=== PATIENT | female | born 1930 | race Caucasian/White ===

== ENCOUNTER → 2021-03-21 | Outpatient (CLI) | payer MEDICARE, OTHER ==
--- NOTE | 2021-03-21 17:04 | CARD ---
MR#: [id number] Date of Study: 03/21/2021 Ordering Physician: DAREK ROSALES, Referring Physician: DAREK ROSALES, Tech: Lida Duran [facility] APPROVED REPORT EXAM: Two-dimensional and M-mode echocardiogram with Doppler and color Doppler. Other Information Quality : GoodHR: 87bpm Rhythm : Pacemaker INDICATION Arrhythmia Complete Heart Block Surgery/Intervention Pacemaker: Date: 2011 RISK FACTORS Hypertension 2D DIMENSIONS IVSd0.9 (0.7-1.1cm)Aortic Root(2D)3.0 (2.0-3.7cm) LVDd3.8 (3.9-5.9cm)LVOT Diameter1.9 (1.8-2.4cm) PWd0.9 (0.7-1.1cm)LVDs2.3 (2.5-4.0cm) FS (%) 40.2 %SV43.7 ml Aortic Valve AoV Peak Fadi.114.3cm/sAoV VTI19.4cm AO Peak GR.5.2mmHgLVOT Peak Fadi.99.9cm/s LVOT VTI 17.86cmAO Mean GR.3mmHg CAMRYN (VMAX)2.58yk7BKY (VTI)2.74cm2 AI P 1/2 Izdl427ev Mitral Valve MV E Rykgjrpj06.1cm/sMV A Caiiskgv504.0cm/s MV E Mean Gr.3mmHgE/A Ratio0.6 TDI E/Lateral E'9.1E/Medial E'12.0 Pulmonary Valve PV Peak Ycuyacdq42.6cm/sPV Peak Grad.3mmHg Tricuspid Valve TR P. Dspyynjk498kk/sRAP UIMTKLCE6orSe TR Peak Gr.05jpSiYPDS90xrHv LEFT VENTRICLE The left ventricle is normal size. There is normal left ventricular wall thickness. The left ventricu lar systolic function is normal and the ejection fraction is within normal range. The Ejection Fracti on is 50-55%. There is normal LV segmental wall motion. Transmitral Doppler flow pattern is Grade I-a bnormal relaxation pattern. RIGHT VENTRICLE The right ventricle is normal size. There is normal right ventricular wall thickness. The right ventr icular systolic function is normal. ATRIA The left atrium size is normal. The right atrium size is normal. The interatrial septum is intact wit h no evidence for an atrial septal defect or patent foramen ovale as noted on 2-D or Doppler imaging. AORTIC VALVE The aortic valve is normal in structure and function. Doppler and Color Flow revealed trace aortic re gurgitation. There is no significant aortic valvular stenosis. Calculated aortic valve area is 1.27 c m2 with maximum pressure gradient of 8 mmHg and mean pressure gradient of 4 mmHg. MITRAL VALVE The mitral valve is normal in structure and function. There is no evidence of mitral valve prolapse. There is no mitral valve stenosis. Doppler and Color-flow revealed trace mitral regurgitation. TRICUSPID VALVE The tricuspid valve is normal in structure and function. Doppler and Color Flow revealed trace to mil d tricuspid regurgitation with an estimated PAP of 31 mmHg. There is no tricuspid valve stenosis. PULMONIC VALVE The pulmonic valve is not well visualized. Doppler and Color Flow revealed trace pulmonic valvular re gurgitation. GREAT VESSELS The aortic root is normal in size. The IVC is normal in size and collapses >50% with inspiration. PERICARDIAL EFFUSION There is no evidence of significant pericardial effusion. Critical Notification Critical Value: No <Conclusion> The left ventricle is normal size. The left ventricular systolic function is normal and the ejection fraction is within normal range. The Ejection Fraction is 50-55%. Doppler and Color Flow revealed trace aortic regurgitation. There is no significant aortic valvular stenosis. Doppler and Color-flow revealed trace mitral regurgitation. Doppler and Color Flow revealed trace to mild tricuspid regurgitation with an estimated PAP of 31 mmH g. Signed by : Luis Mckeon MD Electronically Approved : 03/21/2021 17:04:05
== END ==
LOC: ECHO 14:25
PROVIDERS: ATTEND Internal Medicine Cardiovascular Disease
DX: I07.1 Rheumatic tricuspid insufficiency (principal); I44.2 Atrioventricular block, complete; I49.9 Cardiac arrhythmia, unspecified
CPT/HCPCS: 93306

== ENCOUNTER 2021-04-22 14:20 | Observation (INO) | payer MEDICARE, OTHER ==
[~2021-04-22] VITALS: Ht 152.4 cm; Wt 62.7 kg
[2021-04-22 16:56] LABS: BASO # 0.1 x10^3/uL (0.0-0.2); BASO % 1 % (0-3); EOS # 4.2 x10^3/uL (0.0-0.7); EOS % 31 % (0-3); HEMATOCRIT 38.5 % (36.0-47.0); HEMOGLOBIN 13.1 g/dL (12.0-15.5); LYMPH # 2.1 x10^3/uL (1.0-4.8); LYMPH % 16 % (24-48); MEAN CORPUSCULAR HEMOGLOBIN 28 pg (25-35); MEAN CORPUSCULAR HGB CONC 34 g/dL (31-37); MEAN CORPUSCULAR VOLUME 82 fL (79-100); MONO # 0.8 x10^3/uL (0.0-1.1); MONO % 6 % (0-9); NEUT # 6.5 x10^3/uL (1.8-7.7); NEUT % 48 % (31-73); PLATELET COUNT 244 x10^3/uL (140-400); RED BLOOD COUNT 4.69 x10^6/uL (3.50-5.40); RED CELL DISTRIBUTION WIDTH 13.5 % (11.5-14.5); WHITE BLOOD COUNT 13.7 x10^3/uL (4.0-11.0)
[2021-04-22 17:13] LABS: ALBUMIN 3.5 g/dL (3.4-5.0); ALBUMIN/GLOBULIN RATIO 1.1 (1.0-1.7); C-REACTIVE PROTEIN 7.1 mg/L (0-3.3); CALCIUM 8.6 mg/dL (8.5-10.1); GFR 52.2; TOTAL BILIRUBIN 0.6 mg/dL (0.2-1.0); TOTAL PROTEIN 6.7 g/dL (6.4-8.2)
[2021-04-22 17:14] LABS: POTASSIUM 2.7 mmol/L (3.5-5.1)
--- NOTE | 2021-04-22 17:53 | PHYS DOC ---
Past Medical History Past Medical History: A-Fib, Arthritis, Glaucoma, High Cholesterol, Hypertension, Hypothyroid Past Surgical History: Hysterectomy Additional Past Surgical Histo: pacemaker Smoking Status: Never Smoker Alcohol Use: None General Adult EDM: Chief Complaint: SKIN PROBLEM HPI: HPI: Patient is a 89 year old female with history of atrial fibrillation, HTN, HLD, GERD, arthritis who presents with 8 days of a rash. Started on the forearms. Began to develop all over her body. States that is both painful and itchy. Has tried Benadryl and topical hydrocortisone without relief. No new lotions or medications. No new exposures. Nobody at her facility has similar symptoms. Lives in an assisted living facility currently. Has had some slight increase in her lower extremity swelling and has had a dose of Lasix increased since January. No other new medication changes. Denies fever/chills. No nausea/vomiting, diarrhea. No abdominal pain, chest pain, or other painful areas. Medication list includes: Levothyroxine Meclizine Melatonin Omeprazole Pravastatin Telmisartan Tramadol Aspercreme Pain medicine Amlodipine Celecoxib diclofenac gel Eliquis Furosemide Review of Systems: Review of Systems: Constitutional: Denies fever or chills. [] Eyes: Denies change in visual acuity. [] HENT: Denies nasal congestion or sore throat. [] Respiratory: Denies cough or shortness of breath. [] Cardiovascular: Denies chest pain. Reports lower extremity edema. GI: Denies abdominal pain, nausea, vomiting, bloody stools or diarrhea. [] : Denies dysuria. [] Musculoskeletal: Denies back pain or joint pain. [] Integument: Reports diffuse rash Neurologic: Denies headache, focal weakness or sensory changes. [] Endocrine: Denies polyuria or polydipsia. [] Lymphatic: Denies swollen glands. [] Psychiatric: Denies depression or anxiety. [] Heart Score: C/O Chest Pain: No Current Medications: Current Medications Medications (Trade) Dose Ordered Sig/Nilesh Start Time Stop Time Status Last Admin Dose Admin Potassium Chloride/Water 100 ml @ 50 mls/hr 1X ONCE 04/22/21 18:00 04/22/21 19:59 Potassium Chloride (Klor-Con) 40 meq 1X ONCE 04/22/21 18:00 04/22/21 18:01 Allergies: Allergies: Allergies Coded Allergies Type Severity Reaction Last Updated Verified acetaminophen Allergy Intermediate Unknown 04/22/21 Yes oxycodone Allergy Intermediate Unknown 04/22/21 Yes rivaroxaban Allergy Intermediate Unknown 04/22/21 Yes Physical Exam: PE: Constitutional: Well developed, well nourished, no acute distress, non-toxic appearance. [] HENT: Normocephalic, atraumatic. No mucosal lesions. Neck: Normal range of motion, no tenderness, supple, no stridor. [] Cardiovascular:Heart rate regular rhythm, no murmur [] Lungs & Thorax: Bilateral breath sounds clear to auscultation [] Abdomen: Bowel sounds normal, soft, no tenderness, no masses, no pulsatile masses. [] Skin: Diffuse maculopapular nonblanching rash. In some areas it seems to respect the closing lines such as around the bra, but does not respect sock lines, or underwear or clothing lines. Does not involve the palms, no involv ement of the soles of the feet Extremities: No tenderness, no cyanosis, no clubbing, ROM intact, no edema. [] Neurologic: Alert and oriented X 3, normal motor function, normal sensory function, no focal deficits noted. [] Psychologic: Affect normal, judgement normal, mood normal. [] Current Patient Data: Labs: Laboratory Tests Test 04/22/21 15:50 White Blood Count 13.7 x10^3/uL (4.0-11.0) H Red Blood Count 4.69 x10^6/uL (3.50-5.40) Hemoglobin 13.1 g/dL (12.0-15.5) Hematocrit 38.5 % (36.0-47.0) Mean Corpuscular Volume 82 fL (79-100) Mean Corpuscular Hemoglobin 28 pg (25-35) Mean Corpuscular Hemoglobin Concent 34 g/dL (31-37) Red Cell Distribution Width 13.5 % (11.5-14.5) Platelet Count 244 x10^3/uL (140-400) Neutrophils (%) (Auto) 48 % (31-73) Lymphocytes (%) (Auto) 16 % (24-48) L Monocytes (%) (Auto) 6 % (0-9) Eosinophils (%) (Auto) 31 % (0-3) H Basophils (%) (Auto) 1 % (0-3) Neutrophils # (Auto) 6.5 x10^3/uL (1.8-7.7) Lymphocytes # (Auto) 2.1 x10^3/uL (1.0-4.8) Monocytes # (Auto) 0.8 x10^3/uL (0.0-1.1) Eosinophils # (Auto) 4.2 x10^3/uL (0.0-0.7) H Basophils # (Auto) 0.1 x10^3/uL (0.0-0.2) Platelet Estimate Pending Sodium Level 141 mmol/L (136-145) Potassium Level 2.7 mmol/L (3.5-5.1) *L Chloride Level 101 mmol/L (98-107) Carbon Dioxide Level 29 mmol/L (21-32) Anion Gap 11 (6-14) Blood Urea Nitrogen 12 mg/dL (7-20) Creatinine 1.0 mg/dL (0.6-1.0) Estimated GFR (Cockcroft-Gault) 52.2 BUN/Creatinine Ratio 12 (6-20) Glucose Level 94 mg/dL (70-99) Calcium Level 8.6 mg/dL (8.5-10.1) Total Bilirubin 0.6 mg/dL (0.2-1.0) Aspartate Amino Transferase (AST) 26 U/L (15-37) Alanine Aminotransferase (ALT) 30 U/L (14-59) Alkaline Phosphatase 80 U/L (46-116) C-Reactive Protein, Quantitative 7.1 mg/L (0-3.3) H Total Protein 6.7 g/dL (6.4-8.2) Albumin 3.5 g/dL (3.4-5.0) Albumin/Globulin Ratio 1.1 (1.0-1.7) Treponema pallidum Antibody Nonreactive (Nonreactive) Laboratory Tests 04/22/21 15:50 Laboratory Tests 04/22/21 15:50 Vital Signs: Vital Signs Date Time Temp Pulse Resp B/P (MAP) Pulse Ox O2 Delivery O2 Flow Rate FiO2 04/22/21 16:47 86 14 117/60 (79) 96 Room Air 04/22/21 15:00 98.0 98.0 EKG: EKG: [] Radiology/Procedures: Radiology/Procedures: [] Course & Med Decision Making: Course & Med Decision Making Pertinent Labs and Imaging studies reviewed. (See chart for details) Patient 89-year-old female who presents with a diffuse nonblanching maculopapular rash for the past 8 days. No new medication exposures or hygiene products. Has had an increase in Lasix l ately. Labs do show evidence of eosinophilia. No evidence of fever to suggest dress syndrome. She is on several meds that have been associated with DRESS syndrome including multiple NSAIDs, calcium channel tara. Given palm/soles involvement checked RPR, but no recent sexual hx. Considered vasculitis given non-blanching nature. CRP mildly elevated. Does not seem particularly atopic. May be at risk for nutritional deficiency due to her aversion of meats/proteins. Hypokalemia present on labs to 2.7. Will order IV and oral repletion and discuss with hospitalist regarding ongoing repletion and monitoring. [id number] Zayra Disclaimer: Zayra Disclaimer: This electronic medical record was generated, in whole or in part, using a voice recognition dictation system. Departure Departure Impression: Primary Impression: Hypokalemia Additional Impressions: Eosinophilia Nonblanching rash Disposition: ADMITTED INPATIENT Admitting Physician: MECHELLE Amin) Condition: STABLE Referrals: UNKNOWN PCP NAME (PCP) SAM ANAYA MD Apr 22, 2021 17:53
[2021-04-22] MEDS ORDERED: POTASSIUM CHLORIDE 20 MEQ TABLET.ER. PO ONE ×2 (18:00→21:00)
[2021-04-22] MEDS ORDERED: DIPHENHYDRAMINE/ZINC ACETATE 2%/0.1% TOPICAL CREAM 28GM TUBE. TP PRN (18:00)
[2021-04-22] MEDS ORDERED: POTASSIUM CHLORIDE 20MEQ 100 ML IV ONE (18:00)
[2021-04-22] MEDS ORDERED: traMADol 50 MG TABLET PO PRN (19:15)
[2021-04-22] MEDS ORDERED: ZOLPIDEM 5 MG TABLET. PO PRN (19:15)
[2021-04-22 19:19] LABS: % ATYL 3 % (0-0); % BASOS 1 % (0-3); % EOS 32 % (0-5); % LYMPHS 10 % (24-48); % MONOS 1 % (0-10); % SEGS 53 % (35-66)
--- NOTE | 2021-04-22 19:23 | PDOC1 ---
History and Physical Date of Admission Date of Admission DATE: 04/22/21 TIME: 19:20 Source Source: Caregiver, Chart review, Patient History of Present Illness History of Present Illness Patient is a 89 year old female with history of atrial fibrillation, HTN, HLD, GERD, arthritis who presents with 8 days of a rash. Started on the forearms. Began to develop all over her body. States that is both painful and itchy. Has tried Benadryl and topical hydrocortisone without relief. No new lotions or medications. No new exposures. Nobody at her facility has similar symptoms. Lives in an assisted living facility currently. Has had some slight increase in her lower extremity swelling and has had a dose of Lasix increased since January. No other new medication changes. Denies fever/chills. No nausea/vomiting, diarrhea. No abdominal pain, chest pain, or other painful areas. Past Medical History Cardiovascular: AFIB, CHF, HTN Heme/Onc: No pertinent hx Past Surgical History Past Surgical History: No pertinent history Family History Family History: No Significant Social History Smoke: No ALCOHOL: none Drugs: None Current Problem List Problem List Problems Medical Problems: (1) Eosinophilia Status: Acute (2) Hypokalemia Status: Acute (3) Nonblanching rash Status: Acute Current Medications Current Medications Current Medications Potassium Chloride/Water 100 ml @ 50 mls/hr 1X ONCE IV Last administered on 04/22/21at 18:33; Start 04/22/21 at 18:00; Stop 04/22/21 at 19:59 Potassium Chloride (Klor-Con) 40 meq 1X ONCE PO ; Start 04/22/21 at 18:00; Stop 04/22/21 at 18:01; Status DC Zinc Acetate/ Diphenhydramine (Benadryl Topical) 1 cate PRN Q6HRS PRN TP puritis; Start 04/22/21 at 18:00 Hydrocortisone (Cortizone-10) 1 cate TID TP ; Start 04/22/21 at 21:00; Stop 04/22/21 at 19:12; Status DC Triamcinolone Acetonide (Kenalog 0.5%) 1 cate BID TP ; Start 04/22/21 at 21:00 Prednisone (Prednisone) 50 mg 1X ONCE PO ; Start 04/22/21 at 19:15; Stop 04/22/21 at 19:16; Status UNV Prednisone (Prednisone) 40 mg DAILY PO ; Start 04/23/21 at 09:00; Status UNV Allergies Allergies: Coded Allergies: acetaminophen (Verified Allergy, Intermediate, Unknown, 04/22/21) oxycodone (Verified Allergy, Intermediate, Unknown, 04/22/21) rivaroxaban (Verified Allergy, Intermediate, Unknown, 04/22/21) ROS General: YES: Fatigue; No: Chills, Night Sweats, Malaise, Appetite, Other PSYCHOLOGICAL ROS: YES: Sleep disturbances; No: Anxiety, Behavioral Disorder, Concentration difficultie, Decreased libido, Depression, Disorientation, Hallucinations, Hostility, Irritablity, Memory difficulties, Mood Swings, Obsessive thoughts, Other Eyes: No Blurry vision, No Decreased vision, No Double vision, No Dry eyes, No Excessive tearing, No Eye Pain, No Itchy Eyes, No Loss of vision, No Photophobia, No Scotomata, No Uses contacts, No Uses glasses, No Other HEENT: No: Heacaches, Visual Changes, Hearing change, Nasal congestion, Nasal discharge, Oral lesions, Sinus pain, Sore Throat, Epistaxis, Sneezing, Snoring, Tinnitus, Vertigo, Vocal changes, Other Breast: No New/Changing Breast Lumps, No Nipple changes, No Nipple discharge, No Other Respiratory: No: Cough, Hemoptysis, Orthopnea, Pleuritic Pain, Shortness of breath, SOB with excertion, Sputum Changes, Stridor, Tachypnea, Wheezing, Other Cardiovascular: No Chest Pain, No Palpitations, No Orthopnea, No Paroxysmal Noc. Dyspnea, No Edema, No Lt Headedness, No Other Gastrointestinal: Yes Nausea; No Vomiting, No Abdominal Pain, No Diarrhea, No Constipation, No Melena, No Hematochezia, No Other Genitourinary: No Dysuria, No Frequency, No Incontinence, No Hematuria, No Retention, No Discharge, No Urgency, No Pain, No Flank Pain, No Other, No , No , No , No , No , No , No Musculoskeletal: Yes Joint Stiffness, Yes Muscular Weakness; No Gait Disturbance, No Joint Pain, No Joint Swelling, No Muscle Pain, No Pain In:, No Swelling In:, No Other Neurological: No Behavorial Changes, No Bowel/Bladder ControlChng, No Confusion, No Dizziness, No Gait Disturbance, No Headaches, No Impaired Coord/balance, No Memory Loss, No Numbness/Tingling, No Seizures, No Speech Problems, No Tremors, No Visual Changes, No Weakness, No Other Skin: Yes Dry Skin, Yes Skin Lesion Changes, Yes Other Physical Exam General: Alert, Cooperative, mild distress HEENT: Atraumatic Lungs: Clear to auscultation Heart: S1S2, no thrills, irregularly irregular Extremities: Normal pulses, Other (1+ EDEMA, ) Neuro: Normal speech, Normal tone, Cranial nerves 3-12 NL Psych/Mental Status: Mood NL Vitals Vitals Vital Signs Date Time Temp Pulse Resp B/P (MAP) Pulse Ox O2 Delivery O2 Flow Rate FiO2 04/22/21 18:36 76 14 124/58 (80) 98 Room Air 04/22/21 15:00 98.0 98.0 Labs Labs Laboratory Tests Test 04/22/21 15:50 White Blood Count 13.7 x10^3/uL (4.0-11.0) Red Blood Count 4.69 x10^6/uL (3.50-5.40) Hemoglobin 13.1 g/dL (12.0-15.5) Hematocrit 38.5 % (36.0-47.0) Mean Corpuscular Volume 82 fL (79-100) Mean Corpuscular Hemoglobin 28 pg (25-35) Mean Corpuscular Hemoglobin Concent 34 g/dL (31-37) Red Cell Distribution Width 13.5 % (11.5-14.5) Platelet Count 244 x10^3/uL (140-400) Neutrophils (%) (Auto) 48 % (31-73) Lymphocytes (%) (Auto) 16 % (24-48) Monocytes (%) (Auto) 6 % (0-9) Eosinophils (%) (Auto) 31 % (0-3) Basophils (%) (Auto) 1 % (0-3) Neutrophils # (Auto) 6.5 x10^3/uL (1.8-7.7) Lymphocytes # (Auto) 2.1 x10^3/uL (1.0-4.8) Monocytes # (Auto) 0.8 x10^3/uL (0.0-1.1) Eosinophils # (Auto) 4.2 x10^3/uL (0.0-0.7) Basophils # (Auto) 0.1 x10^3/uL (0.0-0.2) Sodium Level 141 mmol/L (136-145) Potassium Level 2.7 mmol/L (3.5-5.1) Chloride Level 101 mmol/L (98-107) Carbon Dioxide Level 29 mmol/L (21-32) Anion Gap 11 (6-14) Blood Urea Nitrogen 12 mg/dL (7-20) Creatinine 1.0 mg/dL (0.6-1.0) Estimated GFR (Cockcroft-Gault) 52.2 BUN/Creatinine Ratio 12 (6-20) Glucose Level 94 mg/dL (70-99) Calcium Level 8.6 mg/dL (8.5-10.1) Magnesium Level 2.2 mg/dL (1.8-2.4) Total Bilirubin 0.6 mg/dL (0.2-1.0) Aspartate Amino Transf (AST/SGOT) 26 U/L (15-37) Alanine Aminotransferase (ALT/SGPT) 30 U/L (14-59) Alkaline Phosphatase 80 U/L (46-116) C-Reactive Protein, Quantitative 7.1 mg/L (0-3.3) Total Protein 6.7 g/dL (6.4-8.2) Albumin 3.5 g/dL (3.4-5.0) Albumin/Globulin Ratio 1.1 (1.0-1.7) Treponema pallidum Antibody Nonreactive (Nonreactive) Laboratory Tests Test 04/22/21 15:50 White Blood Count 13.7 x10^3/uL (4.0-11.0) Red Blood Count 4.69 x10^6/uL (3.50-5.40) Hemoglobin 13.1 g/dL (12.0-15.5) Hematocrit 38.5 % (36.0-47.0) Mean Corpuscular Volume 82 fL (79-100) Mean Corpuscular Hemoglobin 28 pg (25-35) Mean Corpuscular Hemoglobin Concent 34 g/dL (31-37) Red Cell Distribution Width 13.5 % (11.5-14.5) Platelet Count 244 x10^3/uL (140-400) Neutrophils (%) (Auto) 48 % (31-73) Lymphocytes (%) (Auto) 16 % (24-48) Monocytes (%) (Auto) 6 % (0-9) Eosinophils (%) (Auto) 31 % (0-3) Basophils (%) (Auto) 1 % (0-3) Neutrophils # (Auto) 6.5 x10^3/uL (1.8-7.7) Lymphocytes # (Auto) 2.1 x10^3/uL (1.0-4.8) Monocytes # (Auto) 0.8 x10^3/uL (0.0-1.1) Eosinophils # (Auto) 4.2 x10^3/uL (0.0-0.7) Basophils # (Auto) 0.1 x10^3/uL (0.0-0.2) Sodium Level 141 mmol/L (136-145) Potassium Level 2.7 mmol/L (3.5-5.1) Chloride Level 101 mmol/L (98-107) Carbon Dioxide Level 29 mmol/L (21-32) Anion Gap 11 (6-14) Blood Urea Nitrogen 12 mg/dL (7-20) Creatinine 1.0 mg/dL (0.6-1.0) Estimated GFR (Cockcroft-Gault) 52.2 BUN/Creatinine Ratio 12 (6-20) Glucose Level 94 mg/dL (70-99) Calcium Level 8.6 mg/dL (8.5-10.1) Magnesium Level 2.2 mg/dL (1.8-2.4) Total Bilirubin 0.6 mg/dL (0.2-1.0) Aspartate Amino Transf (AST/SGOT) 26 U/L (15-37) Alanine Aminotransferase (ALT/SGPT) 30 U/L (14-59) Alkaline Phosphatase 80 U/L (46-116) C-Reactive Protein, Quantitative 7.1 mg/L (0-3.3) Total Protein 6.7 g/dL (6.4-8.2) Albumin 3.5 g/dL (3.4-5.0) Albumin/Globulin Ratio 1.1 (1.0-1.7) Treponema pallidum Antibody Nonreactive (Nonreactive) VTE Prophylaxis Ordered VTE Prophylaxis Devices: No VTE Pharmacological Prophylaxi: No Assessment/Plan Assessment/Plan rash, appears as contact derm, PO steroids, stronger topical than given hypokalemia, replace, obs, chronic diastolic CHF, lasix, 2 bp meds f/u CV here, weakness, PT and OT pt is DNR her son is with her tonight Justifications for Admission Other Justification MISHA GOODMAN MD Apr 22, 2021 19:23
[2021-04-22 19:30] VITALS: BP 92/59
[2021-04-22] MEDS ORDERED: predniSONE 10 MG TABLET PO ONE (19:30)
[2021-04-22 19:55] LABS: PLT ESTIMATE ADEQUATE (ADEQUATE)
[2021-04-22] MEDS: APIXABAN 2.5 MG TABLET. PO SCH (20:55)
[2021-04-22] MEDS ORDERED: HYDROCORTISONE 1% LOTION BOTTLE. TP SCH (21:00)
[2021-04-22] MEDS ORDERED: LATANOPROST 0.005% OPHTH SOLUTION 2.5ML BOTTLE. OU SCH (21:00)
[2021-04-22] MEDS: TRIAMCINOLONE ACETONIDE 0.5% TOPICAL CREAM 15GM TUBE. TP SCH (22:22)
[2021-04-22 23:00] VITALS: BP 105/75
--- NOTE | 2021-04-23 02:54 | EKG ---
[facility] [address] [place] [address] Test Date: 2021-04-22 Test Time: 18:29:29 Pat Name: WILLIAN SHETTY Department: Room: [facility] Gender: F Director Integrated: : 1930 Requested By: SAM ANAYA Order Number: [id number] Reading MD: Blaine Hermosillo Measurements Intervals [place] Rate: 80 P: 68 MO: 210 QRS: 67 QRSD: 168 T: 267 QT: 456 QTc: 530 Interpretive Statements AV SEQUENTIAL PACED RHYTHM Electronically Signed On 04-24-2021 10:20:20 DEPUTY COMMISSIONER by Blaine Hermosillo
[2021-04-23 03:00] VITALS: BP 106/54
[2021-04-23] MEDS ORDERED: LEVOTHYROXINE 75 MCG TABLET PO SCH (06:00)
[2021-04-23 07:00] VITALS: BP 116/53
[2021-04-23] MEDS ORDERED: PANTOPRAZOLE 40 MG TABLET.DR. PO SCH (07:30)
[2021-04-23] MEDS ORDERED: ASPIRIN CHEWABLE 81 MG TABLET. PO SCH (08:00)
[2021-04-23 08:24] LABS: CALCIUM 7.9 mg/dL (8.5-10.1); CREATININE 0.8 mg/dL (0.6-1.0); GFR 67.5; POTASSIUM 3.7 mmol/L (3.5-5.1)
[2021-04-23] MEDS ORDERED: AMLO-186 PO (08:26)
[2021-04-23] MEDS ORDERED: ASPI-630 PO (08:26)
[2021-04-23] MEDS ORDERED: MULT-650 PO (08:28)
[2021-04-23] MEDS ORDERED: CELE200C PO (08:28)
[2021-04-23] MEDS ORDERED: CALC600T23 PO (08:28)
[2021-04-23] MEDS ORDERED: PRAV10TA2 PO (08:34)
[2021-04-23] MEDS ORDERED: FURO40TA4 PO (08:34)
[2021-04-23] MEDS ORDERED: OMEP20CA16 PO (08:34)
[2021-04-23] MEDS ORDERED: MELA1TAB6 PO (08:34)
[2021-04-23] MEDS ORDERED: TELM80TA PO (08:34)
[2021-04-23] MEDS ORDERED: APIX2.5T PO (08:34)
[2021-04-23] MEDS ORDERED: TRAM50TA PO (08:34)
[2021-04-23] MEDS ORDERED: LEVO75TA5 PO (08:34)
[2021-04-23] MEDS ORDERED: LATA7.5D OU (08:34)
[2021-04-23] MEDS ORDERED: MECL-75 PO (08:34)
[2021-04-23] MEDS ORDERED: DOCU-148 PO (08:34)
[2021-04-23] MEDS ORDERED: predniSONE 20 MG TABLET PO SCH (09:00)
[2021-04-23] MEDS ORDERED: FUROSEMIDE 40 MG TABLET. PO SCH (09:00)
[2021-04-23] MEDS: APIXABAN 2.5 MG TABLET. PO SCH (09:20)
[2021-04-23] MEDS ORDERED: POTA10TA12 PO (09:25)
[2021-04-23] MEDS ORDERED: PRED-220 PO (09:25)
--- NOTE | 2021-04-23 09:27 | SNU/HH DC ---
DISCHARGE WITH HOME HEALTH DISCHARGE INFORMATION: Discharge Date: Apr 23, 2021 Final Diagnosis: hypokalemia, rash CHF Problems Medical Problems: (1) Eosinophilia Status: Acute (2) Hypokalemia Status: Acute (3) Nonblanching rash Status: Acute Condition on Discharge: Stable HOME HEALTH: Face to Face: I certify this patient is under my care and that I, had a face to face encounter that meets the physician face to face encounter requirements with this patient on 04/23/20 RN For Eval/Treatment: Yes Physical Therapy For: Evalulation/Treatment Occupational Therapy For: Evaluation/Treatment Pt Meets Homebound Status: Extreme weakness w/ amb., Limited distance walking POST DISCHARGE ORDERS: Activity Instructions for Disc: No restrictions, Activity as tolerated Weight Bearing Status after Di: No restrictions, As tolerated DIET AFTER DISCHARGE: Cardiac FOLLOW-UP: Follow up with: primary care Follow Up With: labs in one or two week, chem 7, magnesium CERTIFICATION STATEMENT: Certification Statement: Certification Statement: Based on the above finding, I certify that this patient is confined to the home and needs intermittent mcc care, physical therapy and/or speech therapy, or continues to need occupational therapy.~ This patient is under my care, and I have initiated the establishment of the plan of care.~ This patient will be followed by myself or a community physician who will periodically review the plan of care. Home Meds Active Scripts Prednisone (PREDNISONE ) 10 Mg Tablet, 10 MG PO UD for rash, #24 TAB 0 Refills Take 4 tablets by mouth daily for 3 days, then take 3 tablets by mouth daily for 2 days, then take 2 tablets by mouth daily for 2 days, then take 1 tablets by mouth daily for 2 days, then stop. Prov:MISHA GOODMAN MD 04/23/21 Potassium Chloride (POTASSIUM CHLORIDE ) 10 Meq Tab.sr.24h, 10 MEQ PO DAILY for SUPPLEMENT, #10 TAB.SR Prov:MISHA GOODMAN MD 04/23/21 Reported Medications Tramadol Hcl (TRAMADOL HCL) 50 Mg Tablet, 50 MG PO TID for pain, TAB 0 Refills 04/23/21 Telmisartan (MICARDIS) 80 Mg Tablet, 1 TAB PO TID for unknown, #30 TAB 5 Refills 04/23/21 Pravastatin Sodium (PRAVASTATIN SODIUM) 10 Mg Tablet, 1 TAB PO DAILY for cholesterol, #30 TAB 5 Refills 04/23/21 Omeprazole (OMEPRAZOLE) 20 Mg Capsule.dr, 1 CAP PO DAILY for gerd, #30 CAP 5 Refills 04/23/21 Melatonin/Pyridoxine Hcl (B6) (MELATONIN 10 MG TABLET) 1 Each Tab.mphase, 1 EACH PO HS for insomnia, TAB 04/23/21 Meclizine Hcl (MECLIZINE HCL) 25 Mg Tablet, 25 MG PO DAILY for nausea/vomiting, TAB 04/23/21 Levothyroxine Sodium (LEVOTHYROXINE SODIUM) 75 Mcg Tablet, 1 TAB PO DAILY for th yroid, #30 TAB 5 Refills 04/23/21 Latanoprost/Pf (Latanoprost 0.005% Eye Drop) 7.5 Ml Drops, 1 DROP OU QHS for GLAUCOMA, DROP 04/23/21 Furosemide (FUROSEMIDE) 40 Mg Tablet, 1 TAB PO DAILY for edema, #30 TAB 5 Refills 04/23/21 Apixaban (ELIQUIS) 2.5 Mg Tablet, 2.5 MG PO BID for blood clots, TAB 04/23/21 Docusate Sodium (DOK) 100 Mg Capsule, 100 MG PO BID for constipation, CAP 04/23/21 Multivits-Min/Iron/FA/Lutein (Centrum Silver Women Tablet) 1 Each Tablet, 1 EACH PO DAILY for supplement, TAB 04/23/21 Celecoxib (CELEBREX) 200 Mg Capsule, 1 CAP PO DAILY for at noon for pain, #30 CAP 2 Refills 04/23/21 Calcium Carbonate (CALCIUM CARBONATE) 600 Mg Tablet, 1 TAB PO BID for supplement for 30 Days, #60 TAB 0 Refills 04/23/21 Aspirin (ASPIRIN) 81 Mg Tab.chew, 1 TAB PO DAILY for antiplatelet, #30 TAB 3 Refills 04/23/21 Amlodipine Besylate (AMLODIPINE BESYLATE) 5 Mg Tablet, 5 MG PO DAILY for bp, TAB 04/23/21 MISHA GOODMAN MD Apr 23, 2021 09:27
[2021-04-23] MEDS: TRIAMCINOLONE ACETONIDE 0.5% TOPICAL CREAM 15GM TUBE. TP SCH (09:28)
[2021-04-23] MEDS ORDERED: POTASSIUM CHLORIDE 20 MEQ TABLET.ER. PO ONE (09:30)
--- NOTE | 2021-04-23 09:32 | PDOC3 ---
Discharge Summary Visit Information Date of Admission: Apr 22, 2021 Date of Discharge: Apr 23, 2021 Final Diagnosis rash, appears as contact derm, PO steroids, stronger topical than given hypokalemia, replace, obs, chronic diastolic CHF, lasix, 2 bp meds f/u CV here, weakness, PT and OT ATRIAL FIB, ON ELIQUIS Problems Medical Problems: (1) Eosinophilia Status: Acute (2) Hypokalemia Status: Acute (3) Nonblanching rash Status: Acute Brief Hospital Course Allergies Allergies Coded Allergies Type Severity Reaction Last Updated Verified acetaminophen Allergy Intermediate Unknown 04/22/21 Yes oxycodone Allergy Intermediate Unknown 04/22/21 Yes rivaroxaban Allergy Intermediate Unknown 04/22/21 Yes Vital Signs Vital Signs Date Time Temp Pulse Resp B/P (MAP) Pulse Ox O2 Delivery O2 Flow Rate FiO2 04/23/21 09:21 73 116/53 04/23/21 07:00 98.2 16 92 Room Air 98.2 Lab Results Laboratory Tests Test 04/22/21 15:50 04/23/21 06:35 White Blood Count 13.7 x10^3/uL (4.0-11.0) Red Blood Count 4.69 x10^6/uL (3.50-5.40) Hemoglobin 13.1 g/dL (12.0-15.5) Hematocrit 38.5 % (36.0-47.0) Mean Corpuscular Volume 82 fL (79-100) Mean Corpuscular Hemoglobin 28 pg (25-35) Mean Corpuscular Hemoglobin Concent 34 g/dL (31-37) Red Cell Distribution Width 13.5 % (11.5-14.5) Platelet Count 244 x10^3/uL (140-400) Neutrophils (%) (Auto) 48 % (31-73) Lymphocytes (%) (Auto) 16 % (24-48) Monocytes (%) (Auto) 6 % (0-9) Eosinophils (%) (Auto) 31 % (0-3) Basophils (%) (Auto) 1 % (0-3) Neutrophils # (Auto) 6.5 x10^3/uL (1.8-7.7) Lymphocytes # (Auto) 2.1 x10^3/uL (1.0-4.8) Monocytes # (Auto) 0.8 x10^3/uL (0.0-1.1) Eosinophils # (Auto) 4.2 x10^3/uL (0.0-0.7) Basophils # (Auto) 0.1 x10^3/uL (0.0-0.2) Segmented Neutrophils % 53 % (35-66) Lymphocytes % 10 % (24-48) Atypical Lymphocytes % (Manual) 3 % (0-0) Monocytes % 1 % (0-10) Eosinophils % 32 % (0-5) Basophils % 1 % (0-3) Platelet Estimate Adequate (ADEQUATE) Sodium Level 141 mmol/L (136-145) 141 mmol/L (136-145) Potassium Level 2.7 mmol/L (3.5-5.1) 3.7 mmol/L (3.5-5.1) Chloride Level 101 mmol/L (98-107) 105 mmol/L (98-107) Carbon Dioxide Level 29 mmol/L (21-32) 27 mmol/L (21-32) Anion Gap 11 (6-14) 9 (6-14) Blood Urea Nitrogen 12 mg/dL (7-20) 13 mg/dL (7-20) Creatinine 1.0 mg/dL (0.6-1.0) 0.8 mg/dL (0.6-1.0) Estimated GFR (Cockcroft-Gault) 52.2 67.5 BUN/Creatinine Ratio 12 (6-20) Glucose Level 94 mg/dL (70-99) 141 mg/dL (70-99) Calcium Level 8.6 mg/dL (8.5-10.1) 7.9 mg/dL (8.5-10.1) Magnesium Level 2.2 mg/dL (1.8-2.4) Total Bilirubin 0.6 mg/dL (0.2-1.0) Aspartate Amino Transf (AST/SGOT) 26 U/L (15-37) Alanine Aminotransferase (ALT/SGPT) 30 U/L (14-59) Alkaline Phosphatase 80 U/L (46-116) C-Reactive Protein, Quantitative 7.1 mg/L (0-3.3) Total Protein 6.7 g/dL (6.4-8.2) Albumin 3.5 g/dL (3.4-5.0) Albumin/Globulin Ratio 1.1 (1.0-1.7) Treponema pallidum Antibody Nonreactive (Nonreactive) Laboratory Tests Test 04/22/21 15:50 04/23/21 06:35 White Blood Count 13.7 x10^3/uL (4.0-11.0) Red Blood Count 4.69 x10^6/uL (3.50-5.40) Hemoglobin 13.1 g/dL (12.0-15.5) Hematocrit 38.5 % (36.0-47.0) Mean Corpuscular Volume 82 fL (79-100) Mean Corpuscular Hemoglobin 28 pg (25-35) Mean Corpuscular Hemoglobin Concent 34 g/dL (31-37) Red Cell Distribution Width 13.5 % (11.5-14.5) Platelet Count 244 x10^3/uL (140-400) Neutrophils (%) (Auto) 48 % (31-73) Lymphocytes (%) (Auto) 16 % (24-48) Monocytes (%) (Auto) 6 % (0-9) Eosinophils (%) (Auto) 31 % (0-3) Basophils (%) (Auto) 1 % (0-3) Neutrophils # (Auto) 6.5 x10^3/uL (1.8-7.7) Lymphocytes # (Auto) 2.1 x10^3/uL (1.0-4.8) Monocytes # (Auto) 0.8 x10^3/uL (0.0-1.1) Eosinophils # (Auto) 4.2 x10^3/uL (0.0-0.7) Basophils # (Auto) 0.1 x10^3/uL (0.0-0.2) Segmented Neutrophils % 53 % (35-66) Lymphocytes % 10 % (24-48) Atypical Lymphocytes % (Manual) 3 % (0-0) Monocytes % 1 % (0-10) Eosinophils % 32 % (0-5) Basophils % 1 % (0-3) Platelet Estimate Adequate (ADEQUATE) Sodium Level 141 mmol/L (136-145) 141 mmol/L (136-145) Potassium Level 2.7 mmol/L (3.5-5.1) 3.7 mmol/L (3.5-5.1) Chloride Level 101 mmol/L (98-107) 105 mmol/L (98-107) Carbon Dioxide Level 29 mmol/L (21-32) 27 mmol/L (21-32) Anion Gap 11 (6-14) 9 (6-14) Blood Urea Nitrogen 12 mg/dL (7-20) 13 mg/dL (7-20) Creatinine 1.0 mg/dL (0.6-1.0) 0.8 mg/dL (0.6-1.0) Estimated GFR (Cockcroft-Gault) 52.2 67.5 BUN/Creatinine Ratio 12 (6-20) Glucose Level 94 mg/dL (70-99) 141 mg/dL (70-99) Calcium Level 8.6 mg/dL (8.5-10.1) 7.9 mg/dL (8.5-10.1) Magnesium Level 2.2 mg/dL (1.8-2.4) Total Bilirubin 0.6 mg/dL (0.2-1.0) Aspartate Amino Transf (AST/SGOT) 26 U/L (15-37) Alanine Aminotransferase (ALT/SGPT) 30 U/L (14-59) Alkaline Phosphatase 80 U/L (46-116) C-Reactive Protein, Quantitative 7.1 mg/L (0-3.3) Total Protein 6.7 g/dL (6.4-8.2) Albumin 3.5 g/dL (3.4-5.0) Albumin/Globulin Ratio 1.1 (1.0-1.7) Treponema pallidum Antibody Nonreactive (Nonreactive) Brief Hospital Course Ms. Tony is a 89 old female admit form ER with marked puritis, weakness rash potassium 2.7, then 3/7, so DC DC on PO Discharge Information Condition at Discharge: Improved Follow Up: Weeks Disposition/Orders: D/C to Home Scheduled Amlodipine Besylate (Amlodipine Besylate) 5 Mg Tablet, 5 MG PO DAILY for bp, (Reported) Entered as Reported by: ERICA ASHLEY on 04/23/21825 Last Taken: Unknown Dose on Unknown Date & Time Last Action: New Order on 04/23/21825 by ERICA ASHLEY Apixaban (Eliquis) 2.5 Mg Tablet, 2.5 MG PO BID for blood clots, (Reported) Entered as Reported by: ERICA ASHLEY on 04/23/21833 Last Taken: Unknown Dose on Unknown Date & Time Last Action: New Order on 04/23/21833 by ERICA ASHLEY Aspirin (Aspirin) 81 Mg Tab.chew, 1 TAB PO DAILY for antiplatelet, #30 Ref 3 (Reported) Entered as Reported by: ERICA ASHLEY on 04/23/21825 Last Taken: Unknown Dose on Unknown Date & Time Last Action: New Order on 04/23/21825 by ERICA SAHLEY Calcium Carbonate (Calcium Carbonate) 600 Mg Tablet, 1 TAB PO BID for supplement for 30 Days, #60 Ref 0 (Reported) Entered as Reported by: ERICA ASHLEY on 04/23/21827 Last Taken: Unknown Dose on Unknown Date & Time Last Action: New Order on 04/23/21827 by ERICA ASHLEY Celecoxib (Celebrex) 200 Mg Capsule, 1 CAP PO DAILY for at noon for pain, #30 Ref 2 (Reported) Entered as Reported by: ERICA ASHLEY on 04/23/21827 Last Taken: Unknown Dose on Unknown Date & Time Last Action: New Order on 04/23/21827 by ERICA ASHLEY Docusate Sodium (Dok) 100 Mg Capsule, 100 MG PO BID for constipation, (Reported) Entered as Reported by: ERICA ASHLEY on 04/23/21833 Last Taken: Unknown Dose on Unknown Date & Time Last Action: New Order on 04/23/21833 by ERICA ASHLEY Furosemide (Furosemide) 40 Mg Tablet, 1 TAB PO DAILY for edema, #30 Ref 5 (Reported) Entered as Reported by: ERICA ASHLEY on 04/23/21833 Last Taken: Unknown Dose on Unknown Date & Time Last Action: New Order on 04/23/21833 by ERICA ASHLEY Latanoprost/Pf (Latanoprost 0.005% Eye Drop) 7.5 Ml Drops, 1 DROP OU QHS for GLAUCOMA, (Reported) Entered as Reported by: ERICA ASHLEY on 04/23/21833 Last Taken: Unknown Dose on Unknown Date & Time Last Action: New Order on 04/23/21833 by ERICA ASHLEY Levothyroxine Sodium (Levothyroxine Sodium) 75 Mcg Tablet, 1 TAB PO DAILY for thyroid, #30 Ref 5 (Reported) Entered as Reported by: ERICA ASHLEY on 04/23/21833 Last Taken: Unknown Dose on Unknown Date & Time Last Action: New Order on 04/23/21833 by ERICA ASHLEY Meclizine Hcl (Meclizine Hcl) 25 Mg Tablet, 25 MG PO DAILY for nausea/vomiting, (Reported) Entered as Reported by: ERICA ASHLEY on 04/23/21833 Last Taken: Unknown Dose on Unknown Date & Time Last Action: New Order on 04/23/21833 by ERICA ASHLEY Melatonin/Pyridoxine Hcl (B6) (Melatonin 10 Mg Tablet) 1 Each Tab.mphase, 1 EACH PO HS for insomnia, (Reported) Entered as Reported by: ERICA ASHLEY on 04/23/21833 Last Taken: Unknown Dose on Unknown Date & Time Last Action: New Order on 04/23/21833 by ERICA ASHLEY Multivits-Min/Iron/FA/Lutein (Centrum Silver Women Tablet) 1 Each Tablet, 1 EACH PO DAILY for supplement, (Reported) Entered as Reported by: ERICA ASHLEY on 04/23/21827 Last Taken: Unknown Dose on Unknown Date & Time Last Action: New Order on 04/23/21827 by ERICA ASHLEY Omeprazole (Omeprazole) 20 Mg Capsule.dr, 1 CAP PO DAILY for gerd, #30 Ref 5 (Reported) Entered as Reported by: ERICA ASHLEY on 04/23/21833 Last Taken: Unknown Dose on Unknown Date & Time Last Action: New Order on 04/23/21833 by ERICA ASHLEY Potassium Chloride (Potassium Chloride ) 10 Meq Tab.sr.24h, 10 MEQ PO DAILY for SUPPLEMENT, #10 Prescribed by: MISHA GOODMAN on 04/23/21924 Pravastatin Sodium (Pravastatin Sodium) 10 Mg Tablet, 1 TAB PO DAILY for cholesterol, #30 Ref 5 (Reported) Entered as Reported by: ERCIA ASHLEY on 04/23/21833 Last Taken: Unknown Dose on Unknown Date & Time Last Action: New Order on 04/23/21833 by ERICA ASHLEY Prednisone (Prednisone ) 10 Mg Tablet, 10 MG PO UD for rash, #24 Ref 0 Take 4 tablets by mouth daily for 3 days, then take 3 tablets by mouth daily for 2 days, then take 2 tablets by mouth daily for 2 days, then take 1 tablets by mouth daily for 2 days, then stop. Prescribed by: MISHA GOODMAN on 04/23/21924 Telmisartan (Micardis) 80 Mg Tablet, 1 TAB PO TID for unknown, #30 Ref 5 (Reported) Entered as Reported by: ERICA ASHLEY on 04/23/21833 Last Taken: Unknown Dose on Unknown Date & Time Last Action: New Order on 04/23/21833 by ERICA ASHLEY Tramadol Hcl (Tramadol Hcl) 50 Mg Tablet, 50 MG PO TID for pain, Ref 0 (Re ported) Entered as Reported by: ERICA ASHLEY on 04/23/21833 Last Taken: Unknown Dose on Unknown Date & Time Last Action: New Order on 04/23/21833 by ERICA ASHLEY Patient Instructions Patient Instructions FACE TO FACE may cont to see Dr. Wheeler or est. primary care > 30 min face to face and phone call with sonMikey Justicifation of Admission Dx: Justifications for Admission: Justification of Admission Dx: No (obs) MISHA GOODMAN MD Apr 23, 2021 09:32
[2021-04-23 11:00] VITALS: BP 109/54
--- NOTE | 2021-04-23 14:18 | PDOC2 ---
CONSULT Date of Consult Date of Consult DATE: 04/23/21 TIME: 14:13 Reason for Consult Reason for Consult: Atrial fibrillation. Pacemaker. Heart failure. Referring Physician Referring Physician: Dr. Smith Identification/Chief Complaint Chief Complaint Increasing rash and itching. Source Source: Chart review, Patient History of Present Illness Reason for Visit: The patient is an 89-year-old female with a medical history including atrial fibrillation, permanent pacemaker, hypertension and heart failure. She was admitted for episodes of increased rash and painful itching. Additionally her initial potassium was low at 2.7. Overnight she is recently restarted on her medications and treated for her rash. Her potassium has been replaced and morning potassium level is 3.7. This morning she reports feeling better but still has some itchiness. It is unclear if she follows up with cardiology on a regular basis after discussion with her. Past Medical History Cardiovascular: AFIB, CHF, HTN Heme/Onc: No pertinent hx Endocrine: Hypothyroidism Past Surgical History Past Surgical History: Hysterectomy (Pacemaker) Family History Family History: No Significant Social History No ALCOHOL: none Drugs: None Current Problem List Problem List Problems Medical Problems: (1) Eosinophilia Status: Acute (2) Hypokalemia Status: Acute (3) Nonblanching rash Status: Acute Current Medications Current Medications Current Medications Potassium Chloride/Water 100 ml @ 50 mls/hr 1X ONCE IV Last administered on 04/22/21at 18:33; Start 04/22/21 at 18:00; Stop 04/22/21 at 19:59; Status DC Potassium Chloride (Klor-Con) 40 meq 1X ONCE PO Last administered on 04/22/21at 20:55; Start 04/22/21 at 18:00; Stop 04/22/21 at 18:01; Status DC Zinc Acetate/ Diphenhydramine (Benadryl Topical) 1 cate PRN Q6HRS PRN TP puritis; Start 04/22/21 at 18:00 Hydrocortisone (Cortizone-10) 1 cate TID TP ; Start 04/22/21 at 21:00; Stop 04/22/21 at 19:12; Status DC Triamcinolone Acetonide (Kenalog 0.5%) 1 cate BID TP Last administered on 04/23/21at 09:28; Start 04/22/21 at 21:00 Prednisone (Prednisone) 50 mg 1X ONCE PO Last administered on 04/22/21at 20: 55; Start 04/22/21 at 19:30; Stop 04/22/21 at 19:31; Status DC Prednisone (Prednisone) 40 mg DAILY PO Last administered on 04/23/21at 09:20; Start 04/23/21 at 09:00 Furosemide (Lasix) 40 mg DAILY PO Last administered on 04/23/21at 09:20; Start 04/23/21 at 09:00 Potassium Chloride (Klor-Con) 20 meq 1X ONCE PO ; Start 04/22/21 at 21:00; Stop 04/22/21 at 21:01; Status DC Zolpidem Tartrate (Ambien) 5 mg PRN QHS PRN PO INSOMNIA; Start 04/22/21 at 19:15 Pantoprazole Sodium (Protonix) 40 mg DAILYAC PO Last administered on 04/23/21at 09:20; Start 04/23/21 at 07:30 Tramadol HCl (Ultram) 50 mg PRN Q6HRS PRN PO PAIN; Start 04/22/21 at 19:15 Amlodipine Besylate (Norvasc) 5 mg DAILY PO Last administered on 04/23/21at 09:21; Start 04/23/21 at 09:00 Levothyroxine Sodium (Synthroid) 75 mcg DAILY06 PO Last administered on 04/23/21at 09:20; Start 04/23/21 at 06:00 Latanoprost (Xalatan) 1 drop QHS OU Last administered on 04/22/21at 23:01; Start 04/22/21 at 21:00 Apixaban (Eliquis) 2.5 mg BID PO Last administered on 04/23/21at 09:20; Start 04/22/21 at 21:00 Aspirin (Aspirin Chewable) 81 mg DAILYWBKFT PO Last administered on 04/23/21at 09:20; Start 04/23/21 at 08:00 Potassium Chloride (Klor-Con) 20 meq 1X ONCE PO Last administered on 04/23/21at 09:28; Start 04/23/21 at 09:30; Stop 04/23/21 at 09:31; Status DC Active Scripts Active Prednisone (Prednisone) 10 Mg Tablet 10 Mg PO UD Take 4 tablets by mouth daily for 3 days, then take 3 tablets by mouth daily for 2 days, then take 2 tablets by mouth daily for 2 days, then take 1 tablets by mouth daily for 2 days, then stop. Potassium Chloride (Potassium Chloride) 10 Meq Tab.sr.24h 10 Meq PO DAILY Reported Tramadol Hcl 50 Mg Tablet 50 Mg PO TID Micardis (Telmisartan) 80 Mg Tablet 1 Tab PO TID Pravastatin Sodium 10 Mg Tablet 1 Tab PO DAILY Omeprazole 20 Mg Capsule.dr 1 Cap PO DAILY Melatonin 10 Mg Tablet (Melatonin/Pyridoxine Hcl (B6)) 1 Each Tab.mphase 1 Each PO HS Meclizine Hcl 25 Mg Tablet 25 Mg PO DAILY Levothyroxine Sodium 75 Mcg Tablet 1 Tab PO DAILY Latanoprost 0.005% Eye Drop (Latanoprost/Pf) 7.5 Ml Drops 1 Drop OU QHS Furosemide 40 Mg Tablet 1 Tab PO DAILY Eliquis (Apixaban) 2.5 Mg Tablet 2.5 Mg PO BID Dok (Docusate Sodium) 100 Mg Capsule 100 Mg PO BID Centrum Silver Women Tablet (Multivits-Min/Iron/FA/Lutein) 1 Each Tablet 1 Each PO DAILY Celebrex (Celecoxib) 200 Mg Capsule 1 Cap PO DAILY Calcium Carbonate 600 Mg Tablet 1 Tab PO BID 30 Days Aspirin 81 Mg Tab.chew 1 Tab PO DAILY Amlodipine Besylate 5 Mg Tablet 5 Mg PO DAILY Allergies Allergies: Coded Allergies: acetaminophen (Verified Allergy, Intermediate, Unknown, 04/22/21) oxycodone (Verified Allergy, Intermediate, Unknown, 04/22/21) rivaroxaban (Verified Allergy, Intermediate, Unknown, 04/22/21) ROS General: YES: Fatigue Respiratory: YES: SOB with excertion Skin: Yes Rash Physical Exam General: mild distress Lungs: Clear to auscultation Heart: Regular rate Abdomen: Normal bowel sounds Vitals VITALS Vital Signs Date Time Temp Pulse Resp B/P (MAP) Pulse Ox O2 Delivery O2 Flow Rate FiO2 04/23/21 11:00 97.7 80 18 109/54 (72) 91 97.7 04/23/21 07:00 Room Air Labs Labs Laboratory Tests Test 04/22/21 15:50 04/23/21 06:35 White Blood Count 13.7 x10^3/uL (4.0-11.0) Red Blood Count 4.69 x10^6/uL (3.50-5.40) Hemoglobin 13.1 g/dL (12.0-15.5) Hematocrit 38.5 % (36.0-47.0) Mean Corpuscular Volume 82 fL (79-100) Mean Corpuscular Hemoglobin 28 pg (25-35) Mean Corpuscular Hemoglobin Concent 34 g/dL (31-37) Red Cell Distribution Width 13.5 % (11.5-14.5) Platelet Count 244 x10^3/uL (140-400) Neutrophils (%) (Auto) 48 % (31-73) Lymphocytes (%) (Auto) 16 % (24-48) Monocytes (%) (Auto) 6 % (0-9) Eosinophils (%) (Auto) 31 % (0-3) Basophils (%) (Auto) 1 % (0-3) Neutrophils # (Auto) 6.5 x10^3/uL (1.8-7.7) Lymphocytes # (Auto) 2.1 x10^3/uL (1.0-4.8) Monocytes # (Auto) 0.8 x10^3/uL (0.0-1.1) Eosinophils # (Auto) 4.2 x10^3/uL (0.0-0.7) Basophils # (Auto) 0.1 x10^3/uL (0.0-0.2) Segmented Neutrophils % 53 % (35-66) Lymphocytes % 10 % (24-48) Atypical Lymphocytes % (Manual) 3 % (0-0) Monocytes % 1 % (0-10) Eosinophils % 32 % (0-5) Basophils % 1 % (0-3) Platelet Estimate Adequate (ADEQUATE) Sodium Level 141 mmol/L (136-145) 141 mmol/L (136-145) Potassium Level 2.7 mmol/L (3.5-5.1) 3.7 mmol/L (3.5-5.1) Chloride Level 101 mmol/L (98-107) 105 mmol/L (98-107) Carbon Dioxide Level 29 mmol/L (21-32) 27 mmol/L (21-32) Anion Gap 11 (6-14) 9 (6-14) Blood Urea Nitrogen 12 mg/dL (7-20) 13 mg/dL (7-20) Creatinine 1.0 mg/dL (0.6-1.0) 0.8 mg/dL (0.6-1.0) Estimated GFR (Cockcroft-Gault) 52.2 67.5 BUN/Creatinine Ratio 12 (6-20) Glucose Level 94 mg/dL (70-99) 141 mg/dL (70-99) Calcium Level 8.6 mg/dL (8.5-10.1) 7.9 mg/dL (8.5-10.1) Magnesium Level 2.2 mg/dL (1.8-2.4) Total Bilirubin 0.6 mg/dL (0.2-1.0) Aspartate Amino Transf (AST/SGOT) 26 U/L (15-37) Alanine Aminotransferase (ALT/SGPT) 30 U/L (14-59) Alkaline Phosphatase 80 U/L (46-116) C-Reactive Protein, Quantitative 7.1 mg/L (0-3.3) Total Protein 6.7 g/dL (6.4-8.2) Albumin 3.5 g/dL (3.4-5.0) Albumin/Globulin Ratio 1.1 (1.0-1.7) Treponema pallidum Antibody Nonreactive (Nonreactive) Laboratory Tests Test 04/22/21 15:50 04/23/21 06:35 White Blood Count 13.7 x10^3/uL (4.0-11.0) Red Blood Count 4.69 x10^6/uL (3.50-5.40) Hemoglobin 13.1 g/dL (12.0-15.5) Hematocrit 38.5 % (36.0-47.0) Mean Corpuscular Volume 82 fL (79-100) Mean Corpuscular Hemoglobin 28 pg (25-35) Mean Corpuscular Hemoglobin Concent 34 g/dL (31-37) Red Cell Distribution Width 13.5 % (11.5-14.5) Platelet Count 244 x10^3/uL (140-400) Neutrophils (%) (Auto) 48 % (31-73) Lymphocytes (%) (Auto) 16 % (24-48) Monocytes (%) (Auto) 6 % (0-9) Eosinophils (%) (Auto) 31 % (0-3) Basophils (%) (Auto) 1 % (0-3) Neutrophils # (Auto) 6.5 x10^3/uL (1.8-7.7) Lymphocytes # (Auto) 2.1 x10^3/uL (1.0-4.8) Monocytes # (Auto) 0.8 x10^3/uL (0.0-1.1) Eosinophils # (Auto) 4.2 x10^3/uL (0.0-0.7) Basophils # (Auto) 0.1 x10^3/uL (0.0-0.2) Segmented Neutrophils % 53 % (35-66) Lymphocytes % 10 % (24-48) Atypical Lymphocytes % (Manual) 3 % (0-0) Monocytes % 1 % (0-10) Eosinophils % 32 % (0-5) Basophils % 1 % (0-3) Platelet Estimate Adequate (ADEQUATE) Sodium Level 141 mmol/L (136-145) 141 mmol/L (136-145) Potassium Level 2.7 mmol/L (3.5-5.1) 3.7 mmol/L (3.5-5.1) Chloride Level 101 mmol/L (98-107) 105 mmol/L (98-107) Carbon Dioxide Level 29 mmol/L (21-32) 27 mmol/L (21-32) Anion Gap 11 (6-14) 9 (6-14) Blood Urea Nitrogen 12 mg/dL (7-20) 13 mg/dL (7-20) Creatinine 1.0 mg/dL (0.6-1.0) 0.8 mg/dL (0.6-1.0) Estimated GFR (Cockcroft-Gault) 52.2 67.5 BUN/Creatinine Ratio 12 (6-20) Glucose Level 94 mg/dL (70-99) 141 mg/dL (70-99) Calcium Level 8.6 mg/dL (8.5-10.1) 7.9 mg/dL (8.5-10.1) Magnesium Level 2.2 mg/dL (1.8-2.4) Total Bilirubin 0.6 mg/dL (0.2-1.0) Aspartate Amino Transf (AST/SGOT) 26 U/L (15-37) Alanine Aminotransferase (ALT/SGPT) 30 U/L (14-59) Alkaline Phosphatase 80 U/L (46-116) C-Reactive Protein, Quantitative 7.1 mg/L (0-3.3) Total Protein 6.7 g/dL (6.4-8.2) Albumin 3.5 g/dL (3.4-5.0) Albumin/Globulin Ratio 1.1 (1.0-1.7) Treponema pallidum Antibody Nonreactive (Nonreactive) Assessment/Plan Assessment/Plan 1. Itching and progressive rash. Patient is being treated with topical treatments and is feeling mildly better. 2. Hypokalemia. Initial potassium 2.7. Improved to 3.7 on supplementation. 3. History of atrial fibrillation and a permanent pacemaker. Patient denies dizziness or lightheadedness. Her EKG shows AV pacing. We will obtain old records. Patient is uncertain if she follows up with a professor of french and we will contact her in the next several days if she is discharged to arrange follow-up if needed. 4. Hypertension. Controlled. 5. Hyperlipidemia. Continue present treatment. 6. History of mild heart failure. Again continue present medications with outpatient follow-up. CHICA SANTO MD Apr 23, 2021 14:18
[2021-04-23 15:00] VITALS: BP 111/51
--- NOTE | 2021-04-23 17:11 | NUR ---
Discharge Note: Patient was discharged back to her assisted living with home health services. Patients IV was discontinued without any complications per KD. Patient was given discharge summary/instructions, follow-ups and educational material. Patients new prescriptions were sent to patients preferred pharmacy. Patient did not have any further questions or concerns. Patient was taken down to the main entrance via wheelchair with all personal belongings accompanied by KD Barney, where her son was waiting for her to take her home.
== END 2021-04-23 17:14 | disposition home health service (06) ==
LOC: ER 14:20 → 5 NORTH 18:10
PROVIDERS: ADMIT Internal Medicine; ATTEND Internal Medicine
DX: R21 Rash and other nonspecific skin eruption (principal); D72.10 Eosinophilia, unspecified; E87.6 Hypokalemia; I11.0 Hypertensive heart disease with heart failure; I50.32 Chronic diastolic (congestive) heart failure; I48.21 Permanent atrial fibrillation; E78.00 Pure hypercholesterolemia, unspecified; E78.5 Hyperlipidemia, unspecified; E03.9 Hypothyroidism, unspecified; H40.9 Unspecified glaucoma; M19.90 Unspecified osteoarthritis, unspecified site; R53.1 Weakness; Z66 Do not resuscitate; Z90.710 Acquired absence of both cervix and uterus; Z95.0 Presence of cardiac pacemaker; Z79.899 Other long term (current) drug therapy; Z98.890 Other specified postprocedural states
CPT/HCPCS: 36415; 80048; 80053; 83735; 85007; 85025; 86140; 86592; 93005; 96365; 96366; 97161; 97165; 97530; 99284; G0378; J3480; J7512; G0379